=== PATIENT | female | born 1990 | race Two or more races ===

== ENCOUNTER 2024-02-07 20:15 | Emergency (ER) | payer SELFPAY ==
[2024-02-07] MEDS: LORazepam 1 MG Tab PO ONE (21:38)
[2024-02-07 21:50] LABS: BASOPHILS ABSOLUTE AUTO 0.05 K/uL (0.00-0.20); BASOPHILS PERCENT AUTO 0.5 % (0.0-1.0); EOSINOPHILS ABSOLUTE AUTO 0.14 K/uL (0.00-0.45); EOSINOPHILS PERCENT AUTO 1.4 % (0.0-6.0); HEMATOCRIT 36.5 % (37.0-47.0); HEMOGLOBIN 11.9 g/dL (12.0-16.0); IMMATURE GRAN ABSOLUTE AUTO 0.02 K/uL (0.00-0.05); IMMATURE GRAN PERCENT AUTO 0.2 % (0.0-0.4); LYMPHOCYTES ABSOLUTE AUTO 3.07 K/uL (1.00-4.80); LYMPHOCYTES PERCENT AUTO 31.6 % (24.0-44.0); MEAN CORPUSCULAR HEMOGLOBIN 23.6 pg (28.0-32.0); MEAN CORPUSCULAR HGB CONC 32.6 g/dL (32.0-36.0); MEAN CORPUSCULAR VOLUME 72.3 fL (83.0-99.0); MEAN PLATELET VOLUME 10.2 fL (9.4-12.3); MONOCYTES ABSOLUTE AUTO 1.19 K/uL (0.00-0.80); MONOCYTES PERCENT AUTO 12.2 % (0.0-8.0); NEUTROPHILS ABSOLUTE AUTO 5.25 K/uL (1.80-7.70); NEUTROPHILS PERCENT AUTO 54.1 % (41.0-71.0); PLATELET COUNT,PLT 412 K/uL (150-400); RED BLOOD CELL COUNT 5.05 M/uL (4.10-5.30); WHITE BLOOD CELL COUNT,WBC 9.72 K/uL (3.9-11.3)
[2024-02-07 22:22] LABS: A/G RATIO 0.7 (0.9-1.6); ALBUMIN 3.4 g/dL (3.4-5.0); BILIRUBIN TOTAL 0.7 mg/dL (0.2-1.0); CALCIUM 8.7 mg/dL (8.5-10.1); CARBON DIOXIDE,CO2 23.3 mmol/L (21.0-32.0); CREATININE 0.8 mg/dL (0.6-1.0); EST CRCL DRUG DOSING (CG) 89.16 mL/min; POTASSIUM,K 3.4 mmol/L (3.5-5.1); TSH ULTRASENSITIVE 1.89 uIU/mL (0.36-3.74)
[2024-02-08] MEDS: Diazepam 5 MG Tab PO ONE (00:28)
== END 2024-02-08 00:30 | disposition home or self-care (01) ==
LOC: MW.ED 20:15
DX: F41.9 Anxiety disorder, unspecified (principal); Z75.8 Other problems related to medical facilities and other health care; Z88.0 Allergy status to penicillin; Z79.899 Other long term (current) drug therapy
CPT/HCPCS: 36415; 71045; 80053; 84443; 84484; 85025; 93005; 99285; A9270; 93010; 99283

== ENCOUNTER 2024-05-24 10:39 | Day surgery (SDC) | payer SELFPAY ==
[2024-05-24] MEDS: Lactated Ringers 1,000 ML IV SCH (12:25)
[2024-05-24] MEDS ORDERED: Propofol 200 MG/20 ML SDV ONE ×2 (14:18→14:24)
[2024-05-24] MEDS ORDERED: Lactated Ringers 1,000 ML IV SCH (14:45)
== END 2024-05-24 15:20 | disposition home or self-care (01) ==
LOC: MW.SDS 10:39
PROVIDERS: ATTEND Surgery
DX: K29.50 Unspecified chronic gastritis without bleeding (principal); K31.A0 Gastric intestinal metaplasia, unspecified; K21.9 Gastro-esophageal reflux disease without esophagitis; J45.909 Unspecified asthma, uncomplicated
CPT/HCPCS: 43239; 81025; J2704; J7120; 00731

== ENCOUNTER 2024-09-22 14:58 | Emergency (ER) | payer SELFPAY ==
[2024-09-22] MEDS: Benzonatate 100 MG Cap PO ONE (17:43)
== END 2024-09-22 18:43 | disposition home or self-care (01) ==
LOC: MW.ED 14:58
DX: J06.9 Acute upper respiratory infection, unspecified (principal); Z88.0 Allergy status to penicillin
CPT/HCPCS: 71045; 87428; 99285; A9270

== ENCOUNTER 2024-10-25 08:10 | Emergency (ER) | payer SELFPAY ==
[2024-10-25] MEDS: Ketorolac 30 MG/ML SDV IM ONE (08:49)
== END 2024-10-25 10:10 | disposition home or self-care (01) ==
LOC: MW.ED 08:10
DX: M75.32 Calcific tendinitis of left shoulder (principal); Z88.0 Allergy status to penicillin; Z79.899 Other long term (current) drug therapy; Z75.8 Other problems related to medical facilities and other health care
CPT/HCPCS: 73030; 96372; 99283; J1885